=== PATIENT | female | born 1995 | race American Indian/Alaskan Native ===

== ENCOUNTER 2018-09-23 13:49 | Emergency (ER) | payer MEDICAID, OTHER ==
[2018-09-23] MEDS ORDERED: ATIVAN IV ONE (14:01)
[2018-09-23] MEDS ORDERED: BENADRYL IV ONE (14:01)
[2018-09-23] MEDS ORDERED: ZOFRAN IV ONE (14:19)
[2018-09-23] MEDS ORDERED: DILAUDID IV ONE ×2 (14:19→16:12)
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
[2018-09-23 15:19] LABS: Basophils % (Auto) 0.4 % (0.0-1.8); Eosinophils % (Auto) 0.1 % (0.0-4.3); Hematocrit 40.3 % (30.3-42.9); Hemoglobin 13.3 gm/dl (10.1-14.3); Lymphocytes # (Auto) 0.9 K/mm3 (1.2-5.4); Lymphocytes % (Auto) 9.9 % (13.4-35.0); Mean Corpuscular HGB Conc 33 % (30-34); Mean Corpuscular Volume 89 fl (79-97); Monocytes # (Auto) 1.3 K/mm3 (0.0-0.8); Monocytes % (Auto) 14.4 % (0.0-7.3); Platelet Count 180 K/mm3 (140-440); Red Blood Count 4.53 M/mm3 (3.65-5.03)
[2018-09-23 15:35] LABS: BUN/Creatinine Ratio 17; Blood Urea Nitrogen 10 mg/dL (7-17); Hemolysis Index 5
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
[2018-09-23 18:42] VITALS: BP 119/76
== END 2018-09-23 18:10 | disposition home or self-care (01) ==
LOC: ED 13:49
DX: S16.1XXA Strain of muscle, fascia and tendon at neck level, initial encounter (principal); S09.90XA Unspecified injury of head, initial encounter; M54.6 Pain in thoracic spine; F31.9 Bipolar disorder, unspecified; F20.9 Schizophrenia, unspecified; Y04.2XXA Assault by strike against or bumped into by another person, initial encounter; Y93.39 Activity, other involving climbing, rappelling and jumping off; Y92.89 Other specified places as the place of occurrence of the external cause; Y99.8 Other external cause status
CPT/HCPCS: 36415; 70450; 72072; 72125; 80048; 84703; 85025; 96374; 96375; 96376; 99285; J1170; J1200; J2060; J2405